=== PATIENT | male | born 2000 | race Two or more races ===

== ENCOUNTER 2019-02-22 13:07 | Day surgery (SDC) | payer OTHER ==
[2019-02-14 14:14] VITALS: BMI 17.7
[2019-02-22] MEDS ORDERED: BUPIVACAINE HCL/PF 0.5% (5 MG/ML) 30 ML VIAL IJ ONE (14:29)
[2019-02-22] MEDS ORDERED: MIDAZOLAM HCL 2 MG/2 ML SINGLE DOSE VIAL ONE ×2 (14:29→14:45)
[2019-02-22] MEDS ORDERED: DEXMEDETOMIDINE HCL 200 MCG/2 ML IVPB ONE (14:59)
[2019-02-22] MEDS ORDERED: PROPOFOL 20 ML ONE (15:34)
[2019-02-22] MEDS ORDERED: ceFAZolin SODIUM 1 GM VIAL ONE (16:04)
[2019-02-22] MEDS ORDERED: ONDANSETRON 4 MG/2 ML VIAL ONE (16:04)
[2019-02-22] MEDS ORDERED: KETOROLAC TROMETHAMINE 30 MG/1 ML VIAL ONE (16:04)
[2019-02-22] MEDS ORDERED: SODIUM CHLORIDE 0.9% P/F 10 ML VIAL IJ ONE (16:04)
[2019-02-22] MEDS ORDERED: DEXAMETHASONE SOD PHOSPHATE 4 MG/1 ML VIAL ONE (16:04)
[2019-02-22] MEDS ORDERED: LIDOCAINE HCL/PF 2% SDV 5ML VIAL ONE (16:04)
[2019-02-22] MEDS ORDERED: BENZOIN/ALOE VERA/STORAX/TOLU 58 ML BOTTLE ONE (16:37)
[2019-02-22] MEDS ORDERED: PROMETHAZINE HCL 25 MG/1 ML VIAL IVPUSH PRN (17:02)
[2019-02-22] MEDS ORDERED: ONDANSETRON 4 MG/2 ML VIAL IVPUSH PRN (17:02)
[2019-02-22] MEDS ORDERED: oxyCODONE HCL 5 MG TABLET PO PRN ×2 (17:02)
--- NOTE | 2019-02-22 17:09 | OP ---
Operative Note - Note: Operative Date: 02/22/19 Pre-Operative Diagnosis: Right distal femur osteochondroma Operation: Excisional biopsy right distal femoral osteochondroma Findings: Osteochondroma size: 3 x 2 x 1.5cm ~0.5cm cartilage cap Tourniquet Pressure: 250mmHg Tourniquet Time: See nursing record Post-Operative Diagnosis: Same as Pre-op Surgeon: Carmelo Garza Program Proposals Coordinator: Aram Garza Anesthesiologist/MISSION SUPPORT SPECIALIST: Federico English Anesthesia: General, Local Specimens Removed: Right distal femoral osteochondroma Estimated Blood Loss (mls): 0 Fluid Volume Replaced (mls): 1,400 (Crystalloid) Operative Report Dictated: Yes
--- NOTE | 2019-02-22 17:10 | PN ---
Progress Note (short form) - Note Progress Note: 18M s/p excisional biopsy right distal femoral osteochondroma right knee POD #0. -Pain control. -WBAT RLE. -Pain meds ordered to patient's pharmacy. -f/u post-op trial of void. -Diet as tolerated. -Keep dressing clean & dry; d/c on Monday & place waterproof Band-Aids over incision sites. -Cane vs crutches. -f/u [facility] [place] office 03/01/2018; call for appointment; . Carmelo Garza MD (Orthopaedic Surgery).
--- NOTE | 2019-02-22 17:14 | OP ---
DATE OF OPERATION: 02/22/2019 SURGEON: Carmelo Garza MD JEWELRY ENAMELER: Aram Garza MD PREOPERATIVE DIAGNOSIS: Osteochondroma, right distal medial femur. POSTOPERATIVE DIAGNOSIS: Osteochondroma, right distal medial femur. OPERATION PERFORMED: Wide resection of osteochondroma, right distal femur. ( [id number]) ANESTHESIA: General. ANTIBIOTICS GIVEN: Ancef 2 g. BLOOD LOSS: Bloodless field. TOURNIQUET TIME: Approximately 35 minutes. OPERATION DETAILS: Patient correctly identified, placed prone on a regular operating room table. Right lower extremity was prepped, draped in the routine manner with Betadine scrub solution, wiped with alcohol, DuraPrep applied, a free drape applied, and the limb was subjected to bloodless field with a tourniquet. The right femur was being operated on. The left buttock was elevated using a sandbag to help externally rotate the right lower extremity to gain access to the medially seated tumor which was at the start of the distal femoral flare just slightly proximal to this. An incision was made directly over the tumor. Dissection in the subcutaneous tissue to ensure that we did not damage the long saphenous vein and appropriate nerve worked out well. The tumor was easily accessible by simply opening the fascia and epimysium of the vastus medialis and lifting the vastus medialis anteriorly with a Hohmann placed around the bone bed of the femur. This gave complete easy access to this tumor. The tumor and soft tissue were dissected off the actual bone itself using an oscillating saw. This large tumor which measured 4 cm x 3 cm and the cartilage cap measured 0.5 cm were then subjected to easy excision first with an oscillating saw and then the remaining cuts were made with an osteotome. No cracks or fractures seen in the femur, and no abnormality in the medullary canal noted. The cancellous bone was subjected to a thin layer of bone wax for hemostasis. The tissues were washed out liberally with saline. The tourniquet was released. Small bleeding vessels were cauterized in the subcutaneous was the posterior myofascial bed. By the time we completed this, the wound was bone dry. CLOSURE: The fascia with 1 Vicryl. No subcutaneous sutures were performed. The patient was re-leaned. Skin 3-0 Monocryl and Steri-Strips. No drains inserted. Operation went well, no complications. MD VIDA Martin/[id number] TERARNCE
[2019-02-22] MEDS ORDERED: ALBUTEROL SO4 8 GM HFA INHALER IH SCH (17:15)
[2019-02-22] MEDS ORDERED: oxyCODONE HCL 5 MG TABLET ONE (18:15)
[2019-02-22] MEDS ORDERED: oxyCODONE HCL 5 MG TABLET PO ONE (18:15)
[2019-02-22 18:52] VITALS: BP 107/65; PULSE 69
[2019-02-22 19:16] VITALS: TEMP 98.1
--- NOTE | 2019-02-26 13:28 | PATH ---
Surgical Pathology Report Patient Name: FANNY MCINTOSH Med. Rec. #: [id number] /Age/Gender: 2000 (Age: 18) / M Account: [id number] Location: [facility] AMBUL[facility] Taken: 02/22/2019 Received: 02/22/2019 Reported: 02/26/2019 Physicians: Carmelo Garza M.D. Specimen(s) Received RIGHT FEMUR TUMOR Clinical History Right knee pain Final Diagnosis FEMUR, TUMOR, RIGHT, WIDE RESECTION: OSTEOCHONDROMA. Electronically Signed Brynn Jacobsen M.D. Gross Description Received in formalin labeled "right femur tumor," is a 3.3 x 1.8 x 1.4 cm muir-yellow, irregular portion of bone. The margin of resection is inked in blue and the specimen is serially sectioned. The specimen is entirely and sequentially submitted in 6 cassettes. /02/25/2019 saudi02/25/2019
== END 2019-02-22 19:15 | disposition home or self-care (01) ==
LOC: FASU 13:07
PROVIDERS: ATTEND Orthopaedic Surgery Orthopaedic Surgery of the Spine
PROC: 0QBB0ZZ Excision of Right Lower Femur, Open Approach (ICD-10-PCS; principal; 2019-02-22 16:12)
DX: D16.21 Benign neoplasm of long bones of right lower limb (principal); M25.561 Pain in right knee
CPT/HCPCS: 88309-TC; 88311-TC; 94760